=== PATIENT | male | born 1945 ===

== ENCOUNTER 2021-06-07 13:07 | Outpatient (CLI) | payer OTHER, SELFPAY ==
--- NOTE | 2021-06-07 13:00 | RT.EKG_ITS ---
APPROVED REPORT Exam: Resting ECG Reason for Exam: afib Patient Location: O HR:65 bpm ECG Measurements Heart Rate 65 AXIS MO 204 P [id number] QRSd 154 QRS -74 QT 494 T 9 QTc 514 Conclusion Atrial-paced complexes...other complexes also detected RBBB and LAFB...QRSd >120mS, axis(-40,240)
== END 2021-06-07 13:08 | disposition home or self-care (01) ==
LOC: DI.CARD 13:08
PROVIDERS: PCP Neuromusculoskeletal Medicine & OMM; Visit Provider Internal Medicine Cardiovascular Disease
DX: I48.91 Unspecified atrial fibrillation (principal); R94.31 Abnormal electrocardiogram [ECG] [EKG]
CPT/HCPCS: 93010

== ENCOUNTER → 2021-06-07 14:17 | Outpatient (BNVA) | payer OTHER, SELFPAY | PROVIDERS: PCP Neuromusculoskeletal Medicine & OMM; Referring Provider Neuromusculoskeletal Medicine & OMM; Visit Provider Internal Medicine Cardiovascular Disease | DX: Z95.0 Presence of cardiac pacemaker (principal); I48.91 Unspecified atrial fibrillation; Z01.89 Encounter for other specified special examinations | CPT/HCPCS: 93005; 93280; 93296; 99205 ==